=== PATIENT | female | born 2005 | race Caucasian/White ===

== ENCOUNTER → 2024-05-16 | Outpatient (CLI) | payer OTHER, SELFPAY | END | disposition home or self-care (01) | LOC: BWCLAB 14:07 | PROVIDERS: Referring Provider Obstetrics & Gynecology; Visit Provider Obstetrics & Gynecology | DX: O09.90 Supervision of high risk pregnancy, unspecified, unspecified trimester (principal); Z3A.00 Weeks of gestation of pregnancy not specified | CPT/HCPCS: 36415; 86850; 86900; 86901 ==

== ENCOUNTER 2024-05-31 13:14 | Emergency (ER) | payer OTHER, SELFPAY ==
[2024-05-31 13:15] VITALS: BP 139/84; PULSE 103; RESP 16; TEMP 36.4; O2SAT 100; BMI 30.4
--- NOTE | 2024-05-31 14:12 | US_ITS ---
PROCEDURE: 1st trimester OB ultrasound REASON FOR EXAM: Vaginal bleeding COMPARISON: None. FINDINGS Uterus measures 8.4 x 7.6 x 4.9 cm. Single live intrauterine including a morphologically normal gestational sac, yolk sac and pole. Section-rump length measures 1.4 cm. heart rate is 161 beats per minute. Estimated ultrasound age is 8 weeks 2 days. Morphologically normal ovaries with appropriate bilateral blood flow. No significant pelvic free fluid. US/Transvaginal w/Preg US IMPRESSION: Single live intrauterine as above. Reading Location: [facility]
[2024-05-31 14:37] LABS: Hematocrit 41.7 % (37-47); Hemoglobin 14.6 g/dL (12.0-15.0)
--- NOTE | 2024-05-31 14:49 | ED.VIS.FEGU ---
HPI HPI - Female History of Present Illness Chief Complaint: Vag Bld, Preg Detail of Chief Complaint: Patient presents with first trimester vaginal bleeding Informant: patient and spouse/S.O. Pain Pain: Negative for Pelvic Pain, Vulvar Pain or Vaginal Pain Bleeding Issue: Positive for Vaginal bleeding and Passing clots; Negative for Passing tissue Onset: Today Context: Sudden Onset Timing: Continuous Current Severity: Heavy Associated Symptoms Associated Symptoms: Positive for Missed Period; Negative for Dysuria, Frequency, Urgency, Hematuria or Irregular Period Last known menstrual period: Patient is 8 weeks. She has had 2 ultrasounds P: 0 Ab: 0 Narrative Narrative: Patient is a 18-year-old G1, P0 female with a negative blood who is been seen by Dr. Agata Jernigan for vaginal bleeding. Ultrasound approximate 2 weeks ago. She had a follow-up 1 week later revealed the subchorionic hemorrhage had resolved. She presents because she had spontaneous vaginal bleeding. States it was heavy with passage of clots. She denies cramping pelvic pain lightheadedness. She denies pain referred to her shoulder. She denies history of endometriosis or salpingitis. She does have history of polycystic ovarian syndrome. Prior similar symptoms: Yes Recent Illness/Hospitalization: No PFSH PFSH Medical History Obesity, class 1 Female hirsutism Elevated testosterone level in female Abnormal uterine bleeding Anxiety PCOS (polycystic ovarian syndrome) Home Medications ?Medication ?Instructions ?Recorded ?Last Taken ?Type bupropion HCl 150 mg 24 hr tablet, 150 mg PO QAM 05/16/24 Unknown History extended release (Wellbutrin XL) metformin 500 mg tablet,extended 1,000 mg PO QPM 05/16/24 Unknown History release 24 hr choline 250 mg tablet 260 mg PO DAILY 05/25/24 Unknown History multivitamin no.47-iron fum 27 cap PO 05/25/24 Unknown History mg-folate no.1 1 mg-dha 300 mg capsule (PNV-DHA) Allergy/AdvReac Type Severity Reaction Status Date / Time tree nut (tree nuts) Allergy Severe Swelling Verified 05/31/24 13:17 cefdinir AdvReac Rash Verified 05/31/24 13:17 Surgical History [place] teeth extracted Social History adopted: No household members: spouse housing: house number of children: 0 current occupational status: employed current occupation: [employer] current occupational exposures/hazards: No pets and animals: Yes (AVOID LITTERBOX) pets and animals: cat(s) and dog(s) history of recent travel: Yes (- Mar) out of state: Yes out of country: No sexually active: Yes Smoking Status: Never smoker second hand exposure: No alcohol intake: never substance use type: does not use well-balanced diet: daily or most days caffeine: Yes Type: carbonated beverages Number of servings: 1 eating out: 1-3 times/week during the past year weight has: remained stable what type of physical activity do you participate in: none maday/mandaen: [employer] seatbelt use: always do you feel safe at home: Yes additional social history: Leonid- Farming ROS ROS ED Constitutional Constitutional ED: Denies chills, fever(s), subjective or sweats Cardiovascular Cardiovascular: Denies chest pain or palpitations Respiratory/Chest Respiratory/Chest: Denies cough, dyspnea or dyspnea on exertion Gastrointestinal Gastrointestinal: Denies abdominal pain, nausea or vomiting Genitourinary Genitourinary ED: Denies dysuria, hematuria or urinary frequency Musculoskeletal Musculoskeletal: Denies arthralgias Hematologic/Lymphatic Hematologic/Lymphatic: Denies easy bleeding or easy bruising EXAM Physical Exam Const Vital Signs: 05/31/24 13:15 05/31/24 15:15 Temperature 97.6 F L Temperature Source Temporal Pulse Rate 103 H 86 Respiratory Rate 16 18 Blood Pressure 139/84 H Blood Pressure Mean 102 Pulse Ox 100 98 Oxygen Delivery Method Room Air Room Air Vital signs are marked for an elevated blood pressure and heart rate. Positive well nourished and well developed Constitutional Narrative: BM by is 30.5. General Appearance ED: well developed and NAD; Negative for odor of alcohol detected HEENT Reports moist mucous membranes HEENT Narrative: Head is atraumatic normocephalic. Nares patent. Eyes PERRL and EOMs intact bilaterally General Eye ED: Negative for pale conjunctiva or scleral icterus Neck no lymphadenopathy, supple and no JVD Chest Wall inspection of chest normal and palpation of chest normal Resp normal respiratory effort and clear to auscultation bilaterally Cardio regular rate, regular rhythm, S1 normal heart sound, no murmurs and no JVD GI normal to inspection, nondistended, normoactive bowel sounds, soft to palpation, non-distended and no masses; Negative for non-tender GI Narrative: Patient planing some discomfort to deep palpation in the suprapubic area. Auscultation: normoactive bowel sounds Back/Spine no CVA tenderness Extremity normal to inspection and full ROM Neuro oriented x3 and CN's II-XII intact bilaterally Sensorium / Orientation: alert Psych mental status grossly normal Skin no rashes or lesions noted and no wounds MDM MDM MDM Narrative Medical decision making narrative: Since patient had 2 ultrasound with single live intrauterine will obtain ultrasound to see if the is viable. She has known a negative blood. H&H was obtained and compared to prior. The ultrasounds that were performed were done at Dr. Perez Sánchez's office and images are not available for review. Will discuss case with Dr. Cramer who is on-call for the group once the ultrasound has been interpreted by radiologist. Lab Data Labs: Laboratory Results - last 24 hr 05/31/24 14:30 Hgb 14.6 Hct 41.7 Radiography Diagnostic Testing: Clinical Impression(s) from Imaging Studies Obstetrics Ultrasound 05/31/24 14:12 IMPRESSION: Single live intrauterine as above. Reading Location: [facility] Management Discussion w/another healthcare provider: Management Associate (Spoke with Dr. Gissel Cramer. Patient to call for appointment next week. Patient informing that she has an appointment for next .) Discharge Plan Triage Chief Complaint: Vag Bld, Preg ED Provider: Lalita Mccullougho Dx/Rx/DC Orders Clinical Impression: Vaginal bleeding before 22 weeks gestation, Rh negative status during Instructions: Bleeding During Early Prescriptions: No Action PNV-DHA 27 mg iron-1 mg -300 mg capsule PO choline 250 mg tablet 260 mg PO DAILY bupropion HCl [Wellbutrin XL] 150 mg tablet extended release 24 hr 150 mg PO QAM metformin 500 mg tablet extended release 24 hr 1,000 mg PO QPM Primary Care Provider: Care Physician,No Primary Referrals: Agata Jernigan MD [Med Staff - Active Staff] - Keep Tejinder appointment Care Physician,No Primary [Primary Care Provider] - Print Language: Panamanian Disposition Disposition: Home, Self Care
[2024-05-31 15:15] VITALS: PULSE 86; RESP 18; O2SAT 98
[2024-05-31 17:00] VITALS: PULSE 90; RESP 18; O2SAT 99
== END 2024-05-31 17:21 | disposition home or self-care (01) ==
PROVIDERS: Emergency Provider Emergency Medicine; Visit Provider Emergency Medicine
DX: O20.9 Hemorrhage in early pregnancy, unspecified (principal); O26.891 Other specified pregnancy related conditions, first trimester; Z3A.01 Less than 8 weeks gestation of pregnancy
CPT/HCPCS: 76817; 85014; 85018; 99283; A4216

== ENCOUNTER → 2024-06-04 | Outpatient (CLI) | payer OTHER, SELFPAY ==
[2024-06-04 14:34] LABS: hCG Titer Quant., Serum 144748 mIU/mL (<9 non-preg)
== END | disposition home or self-care (01) ==
LOC: BWCLAB 11:49
PROVIDERS: Advanced Practice Midwife; Referring Provider Obstetrics & Gynecology; Visit Provider Obstetrics & Gynecology
DX: O20.9 Hemorrhage in early pregnancy, unspecified (principal); O26.899 Other specified pregnancy related conditions, unspecified trimester; Z67.91 Unspecified blood type, Rh negative; Z3A.00 Weeks of gestation of pregnancy not specified
CPT/HCPCS: 36415; 84702

== ENCOUNTER → 2024-06-07 | Outpatient (CLI) | payer OTHER, SELFPAY ==
[2024-06-11 20:08] LABS: Chlamydia By Nucleic Acid AMP Negative (Negative); Gonococcus By Nucleic Acid AMP Negative (Negative)
== END | disposition home or self-care (01) ==
PROVIDERS: Referring Provider Advanced Practice Midwife; Visit Provider Advanced Practice Midwife
DX: O09.90 Supervision of high risk pregnancy, unspecified, unspecified trimester (principal); Z3A.00 Weeks of gestation of pregnancy not specified
CPT/HCPCS: 87086; 87491; 87591

== ENCOUNTER → 2024-06-14 | Outpatient (CLI) | payer OTHER, SELFPAY ==
[2024-06-14 12:32] LABS: Absolute Neutrophil Count 3.7 X10^3/uL (2.0-7.7); Basophil# 0.03 X10^3/uL; Basophil% 0.5 % (0-1); Eosinophil# 0.08 X10^3/uL; Eosinophils% 1.3 % (0-5); Hematocrit 41.3 % (37-47); Hemoglobin 14.4 g/dL (12.0-15.0); Lymphocyte % 28.6 % (19-41); Mean Corp Hgb Conc 34.9 g/dL (32-36); Mean Corpuscular Hgb 31.4 pg (27.0-32.0); Mean Platelet Vol. 11.9 fl (6.2-12.0); Monocyte# 0.43 X10^3/uL; Monocyte% 7.2 % (0-10); NRBC Flagged by Analyzer 0 % (0-5); Neutrophil % 62.2 % (47-70); Platelet Count 213 K/mm3 (150-450); RBC Distribution Width CV 12.4 % (11.6-14.6); RBC Distribution Width SD 40.5 fl (35.1-43.9); Red Blood Count 4.59 M/mm3 (4.2-5.4)
[2024-06-14 15:50] LABS: HIV Nonreactive (Nonreactive)
[2024-06-14 17:02] LABS: Hepatitis B Surface Antigen Nonreactive (Nonreactive); Hepatitis C Antibody Nonreactive (Nonreactive); Rubella IgG REAC (Nonreactive); Syphilis Antibodies Nonreactive (Nonreactive)
[2024-06-14 19:57] LABS: Hemoglobin A1c 4.8 % (<=5.6)
== END | disposition home or self-care (01) ==
LOC: BWCLAB 10:18
PROVIDERS: Referring Provider Advanced Practice Midwife; Visit Provider Advanced Practice Midwife
DX: O99.210 Obesity complicating pregnancy, unspecified trimester (principal); E66.9 Obesity, unspecified; Z3A.00 Weeks of gestation of pregnancy not specified
CPT/HCPCS: 36415; 83036; 85025; 86703; 86762; 86780; 86803; 86850; 86900; 86901; 87340

== ENCOUNTER → 2024-10-17 | Outpatient (CLI) | payer OTHER, SELFPAY ==
[2024-10-17 16:35] LABS: Hematocrit 37.4 % (37-47); Hemoglobin 13.1 g/dL (12.0-15.0); Immature Granulocytes Count 0.090 X10^3/uL (0.0-0.0); Mean Corp Hgb Conc 35.0 g/dL (32-36); Mean Corpuscular Volume 91.4 fL (81-99); Mean Platelet Vol. 12.9 fl (6.2-12.0); NRBC Flagged by Analyzer 0 % (0-5); Platelet Count 146 K/mm3 (150-450); RBC Distribution Width CV 13.2 % (11.6-14.6); RBC Distribution Width SD 44.0 fl (35.1-43.9); Red Blood Count 4.09 M/mm3 (4.2-5.4); White Blood Count 11.0 K/mm3 (4.4-11.0)
[2024-10-17 17:17] LABS: Glucose Challenge Gest 1H 50g 123 mg/dL (70-140); HIV Nonreactive (Nonreactive); Syphilis Antibodies Nonreactive (Nonreactive)
== END | disposition home or self-care (01) ==
PROVIDERS: Obstetrics & Gynecology; Referring Provider Obstetrics & Gynecology; Visit Provider Obstetrics & Gynecology
DX: O09.92 Supervision of high risk pregnancy, unspecified, second trimester (principal); Z13.1 Encounter for screening for diabetes mellitus; Z3A.00 Weeks of gestation of pregnancy not specified
CPT/HCPCS: 36415; 82950; 85025; 86703; 86780

== ENCOUNTER → 2024-11-02 | Outpatient (CLI) | payer OTHER, SELFPAY ==
[2024-11-02 12:42] LABS: Hematocrit 39.3 % (37-47); Hemoglobin 13.5 g/dL (12.0-15.0); Immature Granulocytes Count 0.140 X10^3/uL (0.0-0.0); Mean Corp Hgb Conc 34.4 g/dL (32-36); Mean Corpuscular Volume 91.6 fL (81-99); Mean Platelet Vol. 12.3 fl (6.2-12.0); NRBC Flagged by Analyzer 0 % (0-5); Platelet Count 164 K/mm3 (150-450); RBC Distribution Width CV 13.0 % (11.6-14.6); RBC Distribution Width SD 43.5 fl (35.1-43.9); Red Blood Count 4.29 M/mm3 (4.2-5.4); White Blood Count 11.0 K/mm3 (4.4-11.0)
[2024-11-02 13:42] LABS: AST(SGOT) 16 U/L (<=31); Alanine Aminotransfer ALT/SGPT 12 U/L (<=34); Albumin, Serum 3.7 g/dL (3.5-5.0); Alkaline Phosphatase 67 U/L (35-104); Anion Gap 13 (5-15); BUN 6 mg/dL (4-19); BUN/Creat Ratio 11.5 RATIO (10-20); Calcium,Total 8.8 mg/dL (7.6-11.0); Carbon Dioxide 18.2 mmol/L (21.0-32.0); Chloride 107 mmol/L (98-108); Globulin 2.8 g/dL (2.2-4.2); Glucose 103 mg/dL (70-99); Potassium 3.7 mmol/L (3.3-5.1)
[2024-11-02 13:56] LABS: Creatinine, Urine (random) 95.40 mg/dL (28.00-217.00); Protein, Urine (Random) 9.1 mg/dL (0.0-12.0); Protein:Creat Ratio 95 mg/g CRE (0-200)
== END | disposition home or self-care (01) ==
LOC: BWCLAB 12:13
PROVIDERS: Referring Provider Advanced Practice Midwife; Visit Provider Advanced Practice Midwife
DX: O26.899 Other specified pregnancy related conditions, unspecified trimester (principal); R51.9 Headache, unspecified; Z3A.00 Weeks of gestation of pregnancy not specified
CPT/HCPCS: 36415; 80053; 82570; 84156; 85025

== ENCOUNTER → 2024-12-12 | Outpatient (CLI) | payer OTHER, MEDICAID, SELFPAY | END | disposition home or self-care (01) | LOC: LABSPEC 10:54 | PROVIDERS: Referring Provider Advanced Practice Midwife; Visit Provider Advanced Practice Midwife | DX: O09.93 Supervision of high risk pregnancy, unspecified, third trimester (principal); Z3A.36 36 weeks gestation of pregnancy | CPT/HCPCS: 87081 ==

== ENCOUNTER 2024-12-20 14:30 | Inpatient (IN) | payer OTHER, MEDICAID, SELFPAY ==
[2024-12-20] VITALS (8 sets, daily range): BP systolic 129–148; BP diastolic 79–96; PULSE 74–111; RESP 16; TEMP 36.2–36.7; O2SAT 97–98; BMI 41.8; BMI 1445.0; BMI 20250918.0
[2024-12-20] MEDS: Lactated Ringers 1,000 ML 50 ML IV (15:00)
[2024-12-20 15:23] LABS: Creatinine, Urine (random) 78.90 mg/dL (28.00-217.00); Protein, Urine (Random) 17.6 mg/dL (0.0-12.0); Protein:Creat Ratio 223 mg/g CRE (0-200)
--- NOTE | 2024-12-20 15:26 | HP.PCM.OB_ITS ---
HPI - General General Date of Admission: 12/20/24 HPI Narrative LIAS MIN, is a 19 y/o @ 3 weeks 1 day who presents to my office today with headache, blurred vision, and bp 150/100 x 2 . She had trace protein in her urine in the office. On L&D her protein:cr was 233 and bp 139/95 but persistent symptoms. The decision was made to admit, collect PIH labs and induce labor for severe features of hypertension. Maternal Data Information JOSH Calculator Estimated Delivery Date Method Current WG Current Estimate 01/09/25 Ultrasound #1 37w 1d Other Estimates 01/02/25 LMP (Certain) 38w 1d 01/10/25 Ultrasound #2 37w 0d PFSH [facility] Medical History (Updated 12/20/24 @ 14:[address] Gissel Sams, DO) Obesity, class 1 Female hirsutism Elevated testosterone level in female Abnormal uterine bleeding Anxiety PCOS (polycystic ovarian syndrome) Home Medications ?Medication ?Instructions ?Recorded ?Last Taken ?Type multivitamin no.47-iron fum 27 1 cap PO DAILY pregnanc y 05/25/24 12/19/24 History mg-folate no.1 1 mg-dha 300 mg capsule (PNV-DHA) Allergy/AdvReac Type Severity Reaction Status Date / Time tree nut (tree nuts) Allergy Severe Swelling Verified 12/20/24 14:50 cefdinir AdvReac Rash Verified 12/20/24 14:50 Surgical History (Updated 12/20/24 @ 14:55 by Hina Pickens) History of surgery [place] teeth extracted Social History adopted: No household members: spouse housing: house number of children: 0 current occupational status: employed current occupation: [employer] current occupational exposures/hazards: No pets and animals: Yes (AVOID LITTERBOX) pets and animals: cat(s) and dog(s) history of recent travel: Yes (Min- Mar) out of state: Yes out of country: No sexually active: Yes Smoking Status: Never smoker second hand exposure: No alcohol intake: never substance use type: does not use well-balanced diet: daily or most days caffeine: Yes Type: carbonated beverages Number of servings: 1 eating out: 1-3 times/week during the past year weight has: remained stable what type of physical activity do you participate in: none maday/jewish: Religion seatbelt use: always do you feel safe at home: Yes additional social history: Leonid- Quinten History 1 Elective abortions Hx Para 0 Spontaneous abortions Hx # Term Pregnancies Ectopic pregnancies Hx # Pregnancies Multiple births # of living children Visit Details Expected Delivery Route/Plan Labor Preferences- CB/BF classes: no labor support person: Leonid labor intervention preferences: [] pain management options preferred: limited cut cord/dad catch: cord : yes PP control planned: discussed discussed possible routes of delivery and associated risks: [] special requests: [] Plans Covid status: [] Flu vaccine: [] Tdap vaccine: given Rhogam: baby Rh neg LARC form signed: yes movement and labor precautions reviewed. Problem list reviewed and updated with the most current plan of care details and appropriate orders placed. Relevant counseling for the gestational age provided. Continue routine care and follow up unless otherwise noted in visit notes/problem list details OB Flowsheet Initial Weight: Not Recorded Date -?-?-?-?-?-?-?-?-?-?-?-?- EGA Weight BP Urine Prot -?-?-?-?-?-?-?-?-?-?-?-?- Glucose FHR FuHt Pres Dilation -?-?-?-?-?-?-?-?-?-?-?-?- Effaced St Visit Note 06/07/24 -?-?-?-?-?-?-?-?-?-?-?-?- 9w 1d 187 lb 126/82 -?-?-?-?-?-?-?-?-?-?-?-?- 175 -?-?-?-?-?-?-?-?-?-?-?-?- KW- CRL cons wit h last US. Accepts NIPT and carrier. Has been having bleeding on and off. none over the last week. reassurance given 07/05/24 -?-?-?-?-?-?-?-?-?-?-?-?- 13w 1d 191 lb 4 oz 123/79 Nega tive -?-?-?-?-?-?-?-?-?-?-?-?- Negative 160 -?-?-?-?-?-?-?-?-?-?-?-?- JV- JV- no complaints. discusse d fragile x carrier status and reassured . 08/02/24 -?-?-?-?-?-?-?-?-?-?-?-?- 17w 1d 198 lb 4 oz 114/74 Nega tive -?-?-?-?-?-?-?-?-?-?-?-?- Negative 150 -?-?-?-?-?-?-?-?-?-?-?-?- SM- no vb lof cr amping 08/30/24 -?-?-?-?-?-?-?-?-?-?-?-?- 21w 1d 209 lb 8 oz 127/81 Nega tive -?-?-?-?-?-?-?-?-?-?-?-?- Negative 145 21 -?-?-?-?-?-?-?-?-?-?-?-?- KW- no vb/crampi ng. no fm yet. US reviewed and normal. mother concerned with a mount of bleeding pt had in early because of -RH. RH not on ronaldo report. request sent for RH if in records. discussed type and screen to check for antibodies. 09/04/24 -?-?-?-?-?-?-?-?-?-?-?-?- 21w 6d 211 lb 8 oz 143/90 113/73 Negative -?-?-?-?-?-?-?-?-?-?-?-?- Negative 154 -?-?-?-?-?-?-?-?-?-?-?-?- MH-work in for b leeding last night after intercourse but has not persisted. Rhogam given. Very anxious and reassured. 09/28/24 -?-?-?-?-?-?-?-?-?-?-?-?- 25w 2d 217 lb 2 oz 113/71 Nega tive -?-?-?-?-?-?-?-?-?-?-?-?- Negative 155 25 -?-?-?-?-?-?-?-?-?-?-?-?- JV- no lof, vagi nal bleeding, or dec fm. no complaints. 10/17/24 -?-?-?-?-?-?-?-?-?-?-?-?- 28w 0d 114/75 -?-?-?-?-?-?-?-?-?-?-?-?- 135 29 -?-?-?-?-?-?-?-?-?-?-?-?- SM- no vb lof go od fm no regular ctx 11/02/24 -?-?-?-?-?-?-?-?-?-?-?-?- 30w 2d 234 lb 7 oz 135/76 Nega tive -?-?-?-?-?-?-?-?-?-?-?-?- Negative 135 31 -?-?-?-?-?-?-?-?-?-?--?-?- KW- no vb/lof/ct x. good fm. 2 episodes of headaches and elevated BP. no headache today. pre e labs today for episodes and swelling. BP has increased from last few appts. 11/27/24 -?-?-?-?-?-?-?-?-?-?-?-?- 33w 6d 242 lb 3 oz 137/73 Nega tive -?-?-?-?-?-?-?-?-?-?-?-?- Negative 130 34 -?-?-?-?-?-?-?-?-?-?-?-?- SM- no vb lof go od fm no regular ctx 12/12/24 -?-?-?-?-?-?-?-?-?-?-?-?- 36w 0d 248 lb 5 oz 131/83 Nega tive -?-?-?-?-?-?-?-?-?-?-?-?- Negative 145 37 Cephalic 1 -?-?-?-?-?-?-?-?-?-?-?-?- 60 -2 KW- no vb/ lof/ctx. good fm. GBS today. no concerns 12/20/24 -?-?-?-?-?-?-?-?-?-?-?-?- 37w 1d 252 lb 9 oz 150/97 151/100 Trace -?-?-?-?-?-?-?-?-?-?-?-?- Negative 146 38 Cephalic 1 .5 -?-?-?-?-?-?-?-?-?-?-?-?- 60 -3 JV- no lof , vaginal bleeding, or dec fm. she is having some blurry vision sending to L&D for IOL now and treatment of pre-eclampsia. ROS Constitutional Constitutional: Denies change in weight, fatigue, fever(s), headache(s), poor appetite or weakness Eyes Eyes: Denies blurry vision, change in vision, seeing flashes or spots in vision ENT HEENT: Denies dizziness, headache(s), loss taste/smell or sore throat Cardiovascular Cardiovascular: Denies chest pain, dizziness, dyspnea, irregular heart rhythm, leg edema, palpitations, rapid heart rate or vomiting Respiratory/Chest Respiratory/Chest: Denies chest tightness, cough, dyspnea or breast pain Gastrointestinal Gastrointestinal: Denies abdominal pain, anorexia, constipation, cramping, diarrhea, hemorrhoids, vomiting or weight changes Genitourinary Genitourinary: Denies dysuria, flank pain, genital lesions, genital pain, urinary frequency or urinary urgency Musculoskeletal Musculoskeletal: Denies back pain, difficulty walking, joint pain, limited range of motion, muscle cramps or numbness Integumentary Integumentary: Denies lesions or unusual bruising Neurologic Neurologic: Denies abnormal movements, abnormal speech, dizziness, numbness, seizure-like activity or syncope Psychiatric Psychiatric: Denies anxiety, behavioral changes, change in appetite, change in libido, cognitive impairment, confusion, depression, difficulty concentrating, hallucinations or suicidal thoughts Endocrine Endocrinology: Denies excessive sweating, polydipsia or polyuria Hematologic/Lymphatic Hematologic/Lymphatic: Denies easy bleeding, easy bruising or lymphadenopathy Allergic/Immunologic Allergic/Immunologic: Denies itchy eyes, lip swelling, seasonal rhinorrhea, rhinitis, throat swelling, tongue swelling, eczemia, wheezing or asthma Vital Signs Vital Signs Vital Signs: 12/20/24 14:56 12/20/24 14:56 12/20/24 15:01 Pulse Rate 111 H 106 H Blood Pressure BP Systolic BP Diastolic Pulse Ox 98 12/20/24 15:01 12/20/24 15:05 12/20/24 15:05 Pulse Rate 102 H Blood Pressure 139/95 H BP Systolic 139 BP Diastolic 95 Pulse Ox 98 Weight Weight: 251 lb 1.704 oz Body Mass Index (BMI) 41.8 Physical Exam Const alert, oriented x3, no apparent distress and healthy appearing General Appearance: cooperative; Negative for anxious HEENT normocephalic Face and Sinus: normal facial exam Eyes EOMs intact bilaterally and no scleral icterus General Eye: normal appearance of both eyes Neck full ROM and supple Lymph Lymphatic: no lymphadenopathy noted Resp normal respiratory effort Effort and Inspection: able to speak in complete sentences Cardio regular rate GI soft to palpation and non-tender Inspection: gravid Palpation: soft; Negative for tender Back/Spine no CVA tenderness Extremity normal to inspection, full ROM and no clubbing, cyanosis or edema General Extremity: Negative for calf tenderness or edema Skin Lesions: no lesions Rashes: no rashes Psych mental status grossly normal Labs Labs Labs: Blood Type A NEGATIVE Antibody Screen NEGATIVE Hct, (37-47) 39.3 % Hgb, (12.0-15.0) 13.5 g/dL Obstetrics Ultrasound Syphilis Total Ab, (Nonreactive) Nonreactive Rubella IgG Antibody, (Nonreactive) REAC Hep Bs Antigen, (Nonreactive) Nonreactive Hepatitis C Antibody, (Nonreactive) Nonreactive Chlamydia DNA (RIKA), (Negative) Negative N.gonorrhoeae DNA (RIKA), (Negative) Negative HIV 1&2 Antibody, (Nonreactive) Nonreactive Glucose 1 Hr 50 gm, (70-140) 123 mg/dL Assessment & Plan (1) Pre-eclampsia: (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: COMMENT: this child not at risk, future generations may be at risk (3) Screening for genetic disease carrier status: COMMENT: intermediate allele size detection for Fragile X (X linked) (4) Obesity affecting : QUALIFIERS: Trimester: second trimester Obesity type affecting : unspecified obesity Qualified Code(s): O99.212 - Obesity complicating , second trimester COMMENT: [id number] BMI 32 (5) Supervision of high-risk : QUALIFIERS: Trimester: third trimester Qualified Code(s): O09.93 - Supervision of high risk , unspecified, third trimester COMMENT: PRR, , JOSH 01/09/25, girl Glenny Leonid, nl anatomy (6) Depression: QUALIFIERS: Depression Type: unspecified Qualified Code(s): F32.A - Depression, unspecified COMMENT: wellbutrin- weaning off; stable no meds (7) Rh negative status during : QUALIFIERS: Trimester: second trimester Qualified Code(s): O26.892 - Other specified related conditions, second trimester; Z67.91 - Unspecified blood type, Rh negative COMMENT: very early bleeding at 6 weeks, if further bleeding would give rhogam. Give 09/04/24 (8) : QUALIFIERS: Weeks of gestation: 37 weeks Qualified Code(s): Z3A.37 - 37 weeks gestation of COMMENT: GBS neg, NIPT low risk
[2024-12-20 15:58] LABS: Alanine Aminotransfer ALT/SGPT 13 U/L (<=34); Estimated Creatinine Clearance 238.41 ml/min (50-250); Syphilis Antibodies Nonreactive (Nonreactive)
[2024-12-20 16:07] LABS: Hematocrit 37.0 % (37-47); Hemoglobin 13.0 g/dL (12.0-15.0); Immature Granulocytes Count 0.050 X10^3/uL (0.0-0.0); Mean Corp Hgb Conc 35.1 g/dL (32-36); Mean Corpuscular Volume 89.6 fL (81-99); Mean Platelet Vol. 12.9 fl (6.2-12.0); NRBC Flagged by Analyzer 0 % (0-5); Platelet Count 142 K/mm3 (150-450); RBC Distribution Width CV 12.9 % (11.6-14.6); RBC Distribution Width SD 41.8 fl (35.1-43.9); Red Blood Count 4.13 M/mm3 (4.2-5.4); White Blood Count 9.7 K/mm3 (4.4-11.0)
[2024-12-20 16:43] LABS: AST(SGOT) 17 U/L (<=31); Uric Acid 4.1 mg/dL (2.6-6.0)
[2024-12-21] VITALS (59 sets, daily range): BP systolic 100–154; BP diastolic 51–97; PULSE 60–132; RESP 16–20; TEMP 35.9–37.2; O2SAT 87–100; BMI 20250919.0; BMI 520.0; BMI 1748.0
[2024-12-21] MEDS: Oxytocin 15 Units/NS 250ml 15 UNITS/250 ML IV.SOLN 2 UNITS IV (01:00)
--- NOTE | 2024-12-21 07:52 | PCM.PN.BLA ---
Progress Note Coping well with contractions current tracing: FHT: 130 Moderate variability reactive no decelerations category I tracing [place]light: 3-5 minute Contractions Membranes:ruptured for clear at 0745 SVE:3.5/70/-1 Pitocin at 10mu A/P: Continue with position changes Titrate pitocin per protocol Epidural per anesthesia GBS neg Anticipate Dr Cramer aware of above assessment and agrees with plan of care Assessment & Plan Assessment/Plan (1) Encounter for induction of labor: (2) Pre-eclampsia: (3) Carrier of fragile X chromosome: (4) Screening for genetic disease carrier status: (5) Obesity affecting : QUALIFIERS: Trimester: second trimester Obesity type affecting : unspecified obesity Qualified Code(s): O99.212 - Obesity complicating , second trimester (6) Supervision of high-risk : QUALIFIERS: Trimester: third trimester Qualified Code(s): O09.93 - Supervision of high risk , unspecified, third trimester (7) Depression: QUALIFIERS: Depression Type: unspecified Qualified Code(s): F32.A - Depression, unspecified (8) Rh negative status during : QUALIFIERS: Trimester: second trimester Qualified Code(s): O26.892 - Other specified related conditions, second trimester; Z67.91 - Unspecified blood type, Rh negative (9) : QUALIFIERS: Weeks of gestation: 37 weeks Qualified Code(s): Z3A.37 - 37 weeks gestation of (10) PCOS (polycystic ovarian syndrome): Multi Select Codes Urinary/Genital Urinary/Genital CPT Codes: No Charge
[2024-12-21] MEDS: Lactated Ringers 1,000 ML 999 ML IV (10:15)
[2024-12-21] MEDS: fentaNYL-bupivacaine (epidural) 100 ML BAG EPIDURAL ×3 (11:15→20:05)
[2024-12-21] MEDS: 0.9% Saline Lock 10 ML Syringe IV ×3 (12:22→17:47)
--- NOTE | 2024-12-21 12:46 | PN_ITS ---
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: (4) Screening for genetic disease carrier status: (5) Obesity affecting : QUALIFIERS: Trimester: second trimester Obesity type affecting : unspecified obesity Qualified Code(s): O99.212 - Obesity complicating , second trimester (6) Supervision of high-risk : QUALIFIERS: Trimester: third trimester Qualified Code(s): O09.93 - Supervision of high risk , unspecified, third trimester (7) Depression: QUALIFIERS: Depression Type: unspecified Qualified Code(s): F32.A - Depression, unspecified (8) Rh negative status during : QUALIFIERS: Trimester: second trimester Qualified Code(s): O26.892 - Other specified related conditions, second trimester; Z67.91 - Unspecified blood type, Rh negative (9) : QUALIFIERS: Weeks of gestation: 37 weeks Qualified Code(s): Z3A.37 - 37 weeks gestation of (10) PCOS (polycystic ovarian syndrome): Multi Select Codes Urinary/Genital Urinary/Genital CPT Codes: No Charge
[2024-12-21] MEDS: LACTATED RINGERS 500 ML 999 ML IV ×2 (14:20→23:25)
[2024-12-21] MEDS: Oxytocin 15 Units/NS 250ml 15 UNITS/250 ML IV.SOLN 7 UNITS IV (14:45)
[2024-12-21] MEDS: Lactated Ringers 1,000 ML 200 ML IV ×2 (15:20→20:05)
--- NOTE | 2024-12-21 23:15 | EX.PCM.OBVAG ---
Assessment & Plan (1) Vaginal delivery: COMMENT: KW IOL pre eclampsia girl Glenny (2) Encounter for induction of labor: (3) Pre-eclampsia: (4) Carrier of fragile X chromosome: COMMENT: this child not at risk, future generations may be at risk (5) Screening for genetic disease carrier status: COMMENT: intermediate allele size detection for Fragile X (X linked) (6) Obesity affecting : QUALIFIERS: Trimester: second trimester Obesity type affecting : unspecified obesity Qualified Code(s): O99.212 - Obesity complicating , second trimester COMMENT: [id number] BMI 32 (7) Supervision of high-risk : QUALIFIERS: Trimester: third trimester Qualified Code(s): O09.93 - Supervision of high risk , unspecified, third trimester COMMENT: PRR, , JOSH 01/09/25, girl Glenny Leonid, anatomy (8) Depression: QUALIFIERS: Depression Type: unspecified Qualified Code(s): F32.A - Depression, unspecified COMMENT: wellbutrin- weaning off; stable no meds (9) Rh negative status during : QUALIFIERS: Trimester: second trimester Qualified Code(s): O26.892 - Other specified related conditions, second trimester; Z67.91 - Unspecified blood type, Rh negative COMMENT: very early bleeding at 6 weeks, if further bleeding would give rhogam. Give 09/04/24 (10) : QUALIFIERS: Weeks of gestation: 37 weeks Qualified Code(s): Z3A.37 - 37 weeks gestation of COMMENT: GBS neg, NIPT low risk (11) PCOS (polycystic ovarian syndrome): COMMENT: was on metformin at conception, stopped at 17 weeks Maternal Data Information JOSH Calculator Estimated Delivery Date Method Current WG Current Estimate 01/09/25 Ultrasound #1 37w 2d Other Estimates 01/02/25 LMP (Certain) 38w 2d 01/10/25 Ultrasound #2 37w 1d Final JOSH: 12/21/24 Final JOSH Source: US >20 weeks Gestational age: 37.2 Vaginal Delivery Maternal Presentation Maternal Presentation: Medically Indicated Induction Maternal Presentation: Presented to unit for induction of labor for pre eclampsia at 37 weeks Type of Induction: Pitocin, Amniotomy and Cytotec Vaginal Delivery Information Procedure Performed: Spontaneous Vaginal Delivery Surgeon/Practitioner: Jana Macario Date of Procedure: 12/21/24 Pre-Procedure Diagnosis: see problem list Post-Procedure Diagnosis: same Type of anesthesia: Epidural Estimated Blood Loss: 400 Time of Delivery: 22:59 Findings Description of procedure: Progressed well to 10cm dilated and made steady progress with effective maternal pushing. Delivered the head in DANA presentation. The head was delivered atraumatically and no nuchal cord was identified. The anterior and posterior shoulders delivered without complication followed by the rest of the infant and the was placed on the maternal abdomen. Delayed cord clamping was employed for approximately 3 minutes. Cord was clamped and cut and gentle traction was applied to the cord and the placenta delivered spontaneously. Immediately following, it was noted to be intact with a 3 vessel cord. Uterine bleeding stable. The perineum and vagina were inspected and noted to have no laceration. EBL was 400cc. Patient and infant tolerated delivery well. Apgars 8/9. Dr Prasad notified of vaginal delivery and orders reviewed. Physician agrees with current plan of care. Presentation: Vertex Amniotic Fluid Description: Clear Placental Delivery Description: Spontaneous Placenta Disposition: [facility] Specimen collected: No Cord Vessel Description: 3 Vessels Cord Entanglement: None A Gender: Female (1 minute): 8 (5 minute): 9 Delayed Cord Clamping: Yes [employer] Estimator advertising coordinator: No Post Vaginal Deli Medications given after delivery: IV Pitocin Episiotomy Description: None Laceration: None Complication Complications: No Multi Select Codes Urinary/Genital Urinary/Genital CPT Codes: 94512 Vaginal Delivery [facility]
--- NOTE | 2024-12-21 23:18 | DCINST_ITS ---
Discharge Instructions DC O2, CPAP, BIPAP needs Home O2 Discharge instructions: No Dressing / Incision Discharge Activity: Return to Normal Activity May resume sexual activity in: 6-8 weeks Dressing / Incision Call your doctor if you observe: Fever of 101 or Higher, Coldness, Increased Pain, Numbness or Tingling, Change in Color, Inability to urinate, Inability to have a bowel movement, Using more than 1 pad per hour, Shortness of breath, Dizziness, Fainting spells, Swelling in the ankles, Chest pain, Increased palpitations (irregular heartbeat), Calf discomfort and Uncontrolled pain Follow Up Care Please Follow Up With: Jana Macario CNM When: Please call the office to schedule your follow up appointment in 6 weeks. If you had high blood pressure please call to schedule an appointment in 2 weeks. Test Results: Test results from this visit will be discussed in further detail at your follow- up appointment, if applicable. Discharge Plan Admission Admit Date/Time: 12/20/24 14:30 Attending Provider: Jana Macario Primary Care Provider: Care Physician,Claribel Primary Discharge Orders/Prescriptions Prescriptions: No Action PNV-DHA 27 mg iron-1 mg -300 mg capsule 1 cap PO DAILY Referrals / Follow Up: Care Physician,No Primary [Primary Care Provider, Medical]
[2024-12-22] VITALS (74 sets, daily range): BP systolic 102–130; BP diastolic 55–72; PULSE 102–137; RESP 16–18; TEMP 36.2–36.8; O2SAT 77–100
[2024-12-22] MEDS: Oxytocin 15 Units/NS 250ml 15 UNITS/250 ML IV.SOLN 83 UNITS IV
--- NOTE | 2024-12-22 00:53 | EKG12_ITS ---
Test Reason : TACHY POST DELIVERY Blood Pressure : */* mmHG Vent. Rate : 118 BPM Atrial Rate : 118 BPM P-R Int : 144 ms QRS Dur : 78 ms QT Int : 312 ms P-R-T Axes : 30 29 24 degrees QTcB Int : 437 ms Sinus tachycardia Otherwise normal ECG No previous ECGs available Confirmed by ASHLI AWAD, MERCEDES ([id number]), copy editor KAROLYN COLMENARES ([id number]) on 12/24/2024 8:33:27 AM Referred By: Gissel Sams Confirmed By: MERCEDES CORNELIUS MD
[2024-12-22 05:58] LABS: Hematocrit 32.0 % (37-47); Hemoglobin 11.3 g/dL (12.0-15.0); Immature Granulocytes Count 0.220 X10^3/uL (0.0-0.0); Mean Corp Hgb Conc 35.3 g/dL (32-36); Mean Corpuscular Volume 90.1 fL (81-99); Mean Platelet Vol. 12.5 fl (6.2-12.0); NRBC Flagged by Analyzer 0 % (0-5); POSITIVE DIFFERENTIAL YES; Platelet Count 138 K/mm3 (150-450); RBC Distribution Width CV 12.9 % (11.6-14.6); RBC Distribution Width SD 41.9 fl (35.1-43.9); Red Blood Count 3.55 M/mm3 (4.2-5.4); White Blood Count 23.5 K/mm3 (4.4-11.0)
[2024-12-22 06:12] LABS: Differential Indicated SCAN CRITERIA MET
[2024-12-22] MEDS: 0.9% Saline Lock 10 ML Syringe IV ×5 (07:05→19:13)
[2024-12-22] MEDS: Ampicillin 2 GM in 0.9% Normal Saline (100mL MB+) 100 ML IV ×3 (07:06→18:37)
[2024-12-22 07:10] LABS: Differential Comment SCANNED
[2024-12-22] MEDS: GENTAMICIN IVPB (08:08)
[2024-12-22] MEDS: WATER IVPB (08:08)
[2024-12-22] MEDS: DEXTROSE 5% IVPB (08:08)
--- NOTE | 2024-12-22 09:27 | PN.OBGYN_ITS ---
Subjective Subjective Patient doing well without complaints. Tolerating PO. Ambulating and voiding without difficulty. Feeding well. Denies chest pain, shortness of breath, calf pain/swelling, fevers, chills, lightheadedness. Objective Data Objective Data Vital Signs: Vital Signs Temp Pulse Resp BP Pulse Ox O2 Del Method 97.1 F L 115 H 17 124/72 H 99 Room Air 12/22/24 04:35 12/22/24 07:47 12/22/24 04:35 12/22/24 07:47 12/22/24 04:24 12/22/24 04:35 Oxygen Delivery Method Room Air Weight: 251 lb 1.704 oz Body Mass Index (BMI) 41.8 Intake & Output: Intake and Output for Last 24 Hours 12/20/24 12/21/24 12/22/24 23:59 23:59 23:59 Intake Total 83.33 / 83.33 3822.56 / 3822.56 910 / 910 Output Total 2 / 2 853 / 853 2132 / 2132 Balance 81.33 / 81.33 2969.56 / 2969.56 -1222 / -1222 Lab / Micro Data Attestation: I reviewed the patient's lab results. 12/22/24 05:48 12/20/24 15:00 Labs: Laboratory Results - last 24 hr 12/22/24 05:48: WBC 23.5 H, RBC 3.55 L, Hgb 11.3 L, Hct 32.0 L, MCV 90.1, MCH 31.8, MCHC 35.3, RDW Std Deviation 41.9, RDW Coeff of Kimberly 12.9, Plt Count 138 L, MPV 12.5 H, Immature Gran % (Auto) 0.900, Neut % (Auto) 85.8 H, Lymph % (Auto) 5.6 L, [place] % (Auto) 7.6, Eos % (Auto) 0.0, Baso % (Auto) 0.1, Absolute Neuts (auto) 20.2 H, Absolute Lymphs (auto) 1.32, Nucleated RBC % 0, Differential Comment SCANNED ROS Constitutional Constitutional: Reports systems reviewed and no addt'l complaints, except as documented; Denies anorexia or headache(s) Cardiovascular Cardiovascular: Reports systems reviewed and no addt'l complaints, except as documented; Denies dizziness, dyspnea, nausea or tachypnea Respiratory/Chest Respiratory/Chest: Reports systems reviewed and no addt'l complaints, except as documented; Denies cough, dyspnea, shortness of breath at rest or tachypnea Gastrointestinal Gastrointestinal: Reports systems reviewed and no addt'l complaints, except as documented; Denies abdominal pain, constipation or nausea Genitourinary Genitourinary: Reports systems reviewed and no addt'l complaints, except as documented; Denies burning urination, difficulty urinating, dysuria, urinary frequency or urinary incontinence Musculoskeletal Musculoskeletal: Reports systems reviewed and no addt'l complaints, except as documented Integumentary Integumentary: Reports systems reviewed and no addt'l complaints, except as documented Neurologic Neurologic: Reports systems reviewed and no addt'l complaints, except as documented; Denies abnormal speech, dizziness or headache(s) Psychiatric Psychiatric: Reports systems reviewed and no addt'l complaints, except as documented Endocrine Endocrinology: Reports systems reviewed and no addt'l complaints, except as documented Hematologic/Lymphatic Hematologic/Lymphatic: Reports systems reviewed and no addt'l complaints, except as documented Physical Exam Const alert, oriented x3 and no apparent distress Neck full ROM Resp normal respiratory effort, normal air movement and no retractions Effort and Inspection: able to speak in complete sentences and symmetric chest movement GI soft to palpation Bladder / Kidney Exam: bladder normal to palpation Uterus Palpation: uterus fundus firm Extremity normal to inspection and full ROM Psych mental status grossly normal, thought process normal and cooperative Assessment & Plan (1) Tachycardia: COMMENT: elevated WBC. EKG, fluid bolus, AMP and Gent ordered (2) Vaginal delivery: COMMENT: KW IOL pre eclampsia girl [place] PLAN: s/p PPD # 1 1. routine post delivery care 2. breast feeding- support given 3. rh positive 4. rubella immune (3) Encounter for induction of labor: (4) Pre-eclampsia: (5) Carrier of fragile X chromosome: COMMENT: this child not at risk, future generations may be at risk (6) Screening for genetic disease carrier status: COMMENT: intermediate allele size detection for Fragile X (X linked) (7) Obesity affecting : QUALIFIERS: Trimester: second trimester Obesity type affecting : unspecified obesity Qualified Code(s): O99.212 - Obesity complicating , second trimester COMMENT: [id number] BMI 32 (8) Supervision of high-risk : QUALIFIERS: Trimester: third trimester Qualified Code(s): O09.93 - Supervision of high risk , unspecified, third trimester COMMENT: PRR, , JOSH 01/09/25, girl Glenny Leonid, anatomy (9) Depression: QUALIFIERS: Depression Type: unspecified Qualified Code(s): F32.A - Depression, unspecified COMMENT: wellbutrin- weaning off; stable no meds (10) Rh negative status during : QUALIFIERS: Trimester: second trimester Qualified Code(s): O 26.892 - Other specified related conditions, second trimester; Z67.91 - Unspecified blood type, Rh negative COMMENT: very early bleeding at 6 weeks, if further bleeding would give rhogam. Give 09/04/24 (11) : QUALIFIERS: Weeks of gestation: 37 weeks Qualified Code(s): Z 3A.37 - 37 weeks gestation of COMMENT: GBS neg, NIPT low risk (12) PCOS (polycystic ovarian syndrome): COMMENT: was on metformin at conception, stopped at 17 weeks Charges/Coding Multi Select Codes Urinary/Genital Urinary/Genital CPT Codes: No Charge
[2024-12-22 12:38] LABS: Hematocrit 30.0 % (37-47); Hemoglobin 10.7 g/dL (12.0-15.0); Immature Granulocytes Count 0.150 X10^3/uL (0.0-0.0); Mean Corp Hgb Conc 35.7 g/dL (32-36); Mean Corpuscular Volume 89.8 fL (81-99); Mean Platelet Vol. 12.8 fl (6.2-12.0); NRBC Flagged by Analyzer 0 % (0-5); Platelet Count 128 K/mm3 (150-450); RBC Distribution Width CV 13.0 % (11.6-14.6); RBC Distribution Width SD 42.3 fl (35.1-43.9); Red Blood Count 3.34 M/mm3 (4.2-5.4); White Blood Count 18.6 K/mm3 (4.4-11.0)
--- NOTE | 2024-12-22 14:07 | CASEMGMT ---
Social Work Assessment Labor and Delivery Unit Patient Address: [address] [place] [address] [address], [place] [id number] Phone number: [phone] Date of Referral: 12/22/2024 Time of Referral: 07:48 Referred By: Jana Macario Date of Intervention: 12/22/24 Time of Intervention: 14:07 Reason for Referral: Mental Health/Depression History obtained from: Mother of baby, (MOB), father of baby (FOB/Leonid, age 20) and medical record review. ? Household composition: MOB, FOB and their daughter, Glenny, born on 12/21/24. ? Patient's parent/guardian status: MOB and FOB have been together for 5 years and have been for 1 year.? MOB denied any previous or current issues of domestic violence and described a positive relationship with the FOB. MOB and FOB both denied having any other children. Medical History: : 1, Para, now 1. MOB received PNC through [place] beginning at 9 weeks and 1 day. Visits were observed to be routine. Apgars: 8 and 9. Weight: 7lbs, 13oz. Veterinary Pharmacologist: Dr. Ted Saucedo. Educational Status: MOB and FOB denied any issues with reading, writing or learning comprehension. MOB attended one year of college and the FOB earned his high school diploma. Financial Status: MOB and FOB reported that their income is sufficient to meet the needs of their family at this time. MOB is going to be a shzl-hv-zerf mom (SAHM) and the FOB currently works ?full-time and then some? in the area of farming. Supplies: MOB and FOB reported they have the supplies they need for baby at this time including but not limited to: Car seat, bassinet, crib, diapers, bottles, breast pump and clothing. Childcare/Caregiver(s): MOB reported that as a SAHM, she will be the primary caregiver and the FOB will also help provide care during the times he is home. Transportation: Both MOB and FOB are licensed drivers and have a reliable vehicle to get baby to and from all medical appointments. MOB and FOB denied any issues/barriers to transportation at this time. Programs/Agencies Involved: Department of [employer]; Medicaid and food stamps. Children Services/Legal Issues: MOB and FOB denied any previous or current Children Services and/or ?legal involvement. Behavioral Health Issues: Denied ? Mental Health History: MOB has a history of depression and anxiety and used to be on medication however stopped 17 weeks into her . MOB described her symptoms as being managed at this time and stated she does not have a plan to get back on her medications unless needed. FOB denied any history of mental health. Fly Winder administered the [place] Depression Scale (EPDS) to the MOB.? MOB?s score was a 6. Fly Winder provided education about the score which the MOB verbalized she understood. Substance Use History:?? MOB and FOB denied any previous or current drug or alcohol abuse. ? Family History:? MOB reported her mother and MOB?s oldest brother both have a history of anxiety and depression. MOB and FOB denied any other history of mental health or drug or alcohol abuse issues on either side of their families. ? Drug Screens: None obtained during this hospital admission either for the MOB or baby. Family/Social Stressors:?? Denied. MOB stated they are ?on cloud nine right now?. Support Systems:? MOB identified her biggest support as the FOB, family as well as her mother. Depression/Shaken Baby/Safe Sleeping: Fly Winder provided verbal and written education on PPD, increased risk factors for PPD, Safe Sleeping and Shaken Baby.? MOB and FOB both verbalized an understanding.??? ASSESSMENT: MOB and FOB provided consent to social work visit. Upon arrival, the MOB was sitting in a chair, eating lunch and the FOB was laying on the couch, holding on his stomach with both hands. At one point, the FOB started to fall asleep and social worker delinquency prevention alerted the MOB and instructed the MOB to go get from the FOB so that doesn?t risk rolling off of the FOB and onto the floor. (MOB had not been able to see due to how her chair was positioned). Fly Winder reviewed safe sleeping again and after the assessment also alerted MOB?s nurse to review safe holding/sleeping procedures with the MOB and FOB which she agreed to do. Fly Winder observed positive interaction between the MOB and FOB as well as with the MOB and FOB towards . Both were observed to be very gentle with and attentive. ??At the end of the assessment, Fly Winder requested to speak with the MOB alone, which she and the FOB were both agreeable to. MOB reported feeling safe in her home and denied any previous or current domestic violence, unmanaged mental health issues either with herself or with the FOB, and also denied any concerns with any drug or alcohol abuse either with herself or with the FOB as well as any unmanaged mental health concerns. Safe Plan of Care for infant related to substance use: N/A PLAN: For MOB and baby to be discharged when medically ready. No other services requested or indicated. Gissel Nam, FILL MANAGER, ELECTRICAL CONTROLS TECHNICIAN
[2024-12-23 02:50] VITALS: PULSE 90; O2SAT 98
[2024-12-23 02:51] VITALS: BP 107/58; PULSE 88
[2024-12-23 02:55] VITALS: BP 107/58; PULSE 89; RESP 16; TEMP 36.4; O2SAT 98
[2024-12-23 08:20] VITALS: BP 119/66; PULSE 89; RESP 16; TEMP 36.8; O2SAT 99
[2024-12-23 08:21] VITALS: BP 119/66; PULSE 89; PULSE 98; O2SAT 99
--- NOTE | 2024-12-23 09:25 | PCM.PN.OB ---
Subjective Subjective Patient doing well without complaints. Tolerating PO. Ambulating and voiding without difficulty. Feeding well. Denies chest pain, shortness of breath, calf pain/swelling, fevers, chills, lightheadedness. Objective Data Objective Data Vital Signs: Vital Signs Temp Pulse Resp BP Pulse Ox O2 Del Method 98.2 F 98 16 119/66 99 Room Air 12/23/24 08:20 12/23/24 08:21 12/23/24 08:20 12/23/24 08:21 12/23/24 08:21 12/23/24 08:20 Oxygen Delivery Method Room Air Weight: 251 lb 1.704 oz Body Mass Index (BMI) 41.8 Intake & Output: Intake and Output for Last 24 Hours 12/21/24 12/22/24 12/23/24 23:59 23:59 23:59 Intake Total 3822.56 / 3822.56 1110 / 1110 Output Total 853 / 853 2732 / 2732 Balance 2969.56 / 2969.56 -1622 / -1622 Lab / Micro Data Attestation: I reviewed the patient's lab results. 12/22/24 12:10 12/20/24 15:00 Labs: Laboratory Results - last 24 hr 12/22/24 12:10: WBC 18.6 H, RBC 3.34 L, Hgb 10.7 L, Hct 30.0 L, MCV 89.8, MCH 32.0, MCHC 35.7, RDW Std Deviation 42.3, RDW Coeff of Kimberly 13.0, Plt Count 128 L, MPV 12.8 H, Immature Gran % (Auto) 0.800, Neut % (Auto) 84.8 H, Lymph % (Auto) 6.7 L, [place] % (Auto) 7.4, Eos % (Auto) 0.1, Baso % (Auto) 0.2, Absolute Neuts (auto) 15.8 H, Absolute Lymphs (auto) 1.24, Nucleated RBC % 0 ROS Constitutional Constitutional: Reports systems reviewed and no addt'l complaints, except as documented; Denies anorexia or headache(s) Cardiovascular Cardiovascular: Reports systems reviewed and no addt'l complaints, except as documented; Denies dizziness, dyspnea, nausea or tachypnea Respiratory/Chest Respiratory/Chest: Reports systems reviewed and no addt'l complaints, except as documented; Denies cough, dyspnea, shortness of breath at rest or tachypnea Gastrointestinal Gastrointestinal: Reports systems reviewed and no addt'l complaints, except as documented; Denies abdominal pain, constipation or nausea Genitourinary Genitourinary: Reports systems reviewed and no addt'l complaints, except as documented; Denies burning urination, difficulty urinating, dysuria, urinary frequency or urinary incontinence Musculoskeletal Musculoskeletal: Reports systems reviewed and no addt'l complaints, except as documented Integumentary Integumentary: Reports systems reviewed and no addt'l complaints, except as documented Neurologic Neurologic: Reports systems reviewed and no addt'l complaints, except as documented; Denies abnormal speech, dizziness or headache(s) Psychiatric Psychiatric: Reports systems reviewed and no addt'l complaints, except as documented Endocrine Endocrinology: Reports systems reviewed and no addt'l complaints, except as documented Hematologic/Lymphatic Hematologic/Lymphatic: Reports systems reviewed and no addt'l complaints, except as documented Physical Exam Const alert, oriented x3 and no apparent distress Neck full ROM Resp normal respiratory effort, normal air movement and no retractions Effort and Inspection: able to speak in complete sentences and symmetric chest movement GI soft to palpation Bladder / Kidney Exam: bladder normal to palpation Uterus Palpation: uterus fundus firm Extremity normal to inspection and full ROM Psych mental status grossly normal, thought process normal and cooperative Assessment & Plan (1) Tachycardia: COMMENT: elevated WBC. EKG, fluid bolus, AMP and Gent ordered (2) Vaginal delivery: COMMENT: KW IOL pre eclampsia girl [place] PLAN: s/p PPD # 2 1. routine post delivery care 2. breast feeding- support given 3. rh positive 4. rubella immune 5. Discharge home (3) Encounter for induction of labor: (4) Pre-eclampsia: PLAN: plan to take daily BPS for next week and call office with numbers on tuesday. will call in if higher than 140/90 or higher. (5) Carrier of fragile X chromosome: COMMENT: this child not at risk, future generations may be at risk (6) Screening for genetic disease carrier status: COMMENT: intermediate allele size detection for Fragile X (X linked) (7) Obesity affecting : QUALIFIERS: Trimester: second trimester Obesity type affecting : unspecified obesity Qualified Code(s): O99.212 - Obesity complicating , second trimester COMMENT: [id number] BMI 32 (8) Supervision of high-risk : QUALIFIERS: Trimester: third trimester Qualified Code(s): O09.93 - Supervision of high risk , unspecified, third trimester COMMENT: PRR, , JOSH 01/09/25, girl Glenny Leonid, nl anatomy (9) Depression: QUALIFIERS: Depression Type: unspecified Qualified Code(s): F32.A - Depression, unspecified COMMENT: wellbutrin- weaning off; stable no meds (10) Rh negative status during : QUALIFIERS: Trimester: second trimester Qualified Code(s): O26.892 - Other specified related conditions, second trimester; Z67.91 - Unspecified blood type, Rh negative COMMENT: very early bleeding at 6 weeks, if further bleeding would give rhogam. Give 09/04/24 (11) : QUALIFIERS: Weeks of gestation: 37 weeks Qualified Code(s): Z3A.37 - 37 weeks gestation of COMMENT: GBS neg, NIPT low risk (12) PCOS (polycystic ovarian syndrome): COMMENT: was on metformin at conception, stopped at 17 weeks Charges/Coding Multi Select Codes Urinary/Genital Urinary/Genital CPT Codes: No Charge
--- NOTE | 2024-12-24 10:00 | DS.PCM_ITS ---
Providers Date of Admission: 12/20/24 Date of Discharge: 12/23/24 Primary Care Physician: Claribel Primary Care Phys Reason For Visit: LABOR AND DELIVERY Diagnosis Discharge Diagnosis (1) Tachycardia: Status: Acute Code(s): R00.0 - Tachycardia, unspecified (2) Vaginal delivery: Status: Acute Code(s): O80 - Encounter for full-term uncomplicated delivery Plan: s/p PPD # 2 1. routine post delivery care 2. breast feeding- support given 3. rh positive 4. rubella immune 5. Discharge home (3) Encounter for induction of labor: Status: Acute Code(s): Z34.90 - Encounter for supervision of normal , unspecified, unspecified trimester (4) Pre-eclampsia: Status: Acute Code(s): O14.90 - Unspecified pre-eclampsia, unspecified trimester Plan: plan to take daily BPS for next week and call office with numbers on tuesday. will call in if higher than 140/90 or higher. 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 Code(s): Z14.8 - Genetic carrier of other disease (6) Screening for genetic disease carrier status: Status: Acute Code(s): Z13.71 - Encounter for nonprocreative screening for genetic disease carrier status (7) Obesity affecting : Status: Acute Code(s): O99.210 - Obesity complicating , unspecified trimester Qualifiers: Trimester: second trimester Obesity type affecting : u nspecified obesity Qualified Code(s): O99.212 - Obesity complicating , second trimester (8) Supervision of high-risk : Status: Acute Code(s): O09.90 - Supervision of high risk , unspecified, unspecified trimester Qualifiers: Trimester: third trimester Qualified Code(s): O09.93 - Supervision of high risk , unspecified, third trimester (9) Depression: Status: Acute Code(s): F32.A - Depression, unspecified Qualifiers: Depression Type: unspecified Qualified Code(s): F32.A - Depression, unspecified (10) Rh negative status during : Status: Acute Code(s): O26.899 - Other specified related conditions, unspecified trimester; Z67.91 - Unspecified blood type, Rh negative Qualifiers: Trimester: second trimester Qualified Code(s): O26.892 - Other specified related conditions, second trimester; Z67.91 - Unspecified blood type, Rh negative (11) : Status: Acute Code(s): Z34.90 - Encounter for supervision of normal , unspecified, unspecified trimester Qualifiers: Weeks of gestation: 37 weeks Qualified Code(s): Z3A.37 - 37 weeks gestation of (12) PCOS (polycystic ovarian syndrome): Status: Acute Code(s): E28.2 - Polycystic ovarian syndrome Medications at Discharge Home Medications multivitamin no.47-iron fum 27 mg-folate no.1 1 mg-dha 300 mg capsule (PNV-DHA) 1 cap PO DAILY 05/25/24 Hospital Course Operations None Procedures None Summary of Care Provided Minutes Spent on Discharge: 30 Physical Exam Const alert, oriented x3 and no apparent distress Neck full ROM Resp normal respiratory effort, normal air movement and no retractions Effort and Inspection: able to speak in complete sentences and symmetric chest movement GI soft to palpation Bladder / Kidney Exam: bladder normal to palpation Uterus Palpation: uterus fundus Extremity normal to inspection and full ROM Psych mental status grossly normal, thought process normal and cooperative Weight / BMI Weight Weight: 251 lb 1.704 oz Body Mass Index (BMI) 41.8 ABG / Lab / Microbiology Data 12/22/24 12:10 12/20/24 15:00 D/C Instructions May shower in (days): 0 May resume sexual activity in: 6-8 weeks Weight Bearing Status: Full weight bearing Call your doctor if your incision/area has: Continuous Slow Oozing, Sudden Increased Bleeding, Increased Pain/ Swelling, Increased Redness and Foul Smelling Discharge Call your doctor if you observe: Fever of 101 or Higher, Coldness, Increased Pain, Numbness or Tingling, Change in Color, Inability to urinate, Inability to have a bowel movement, Using more than 1 pad per hour, Shortness of breath, Dizziness, Fainting spells, Swelling in the ankles, Chest pain, Increased palpitations (irregular heartbeat), Calf discomfort and Uncontrolled pain Suture Line Care: Avoid Pulling/Pushing and Avoid Pinching/Bending Cleanse incision/area with: Soap & Water and Keep Dressing Clean & Dry DC O2, CPAP, BIPAP Needs Home O2 Discharge instructions: No Please Follow Up With: Jana Macario CNM When: Please call the office to schedule your follow up appointment in 6 weeks. If you had high blood pressure please call to schedule an appointment in 2 weeks. Meaningful Use Info Meaningful Use Meaningful Use Diagnoses (Choose all that apply): None applicable Discharge Plan Admission Admit Date/Time: 12/20/24 14:30 Attending Provider: Jana Macario Primary Care Provider: Care Physician,Claribel Primary Discharge Orders/Prescriptions Prescriptions: No Action PNV-DHA 27 mg iron-1 mg -300 mg capsule 1 cap PO DAILY Referrals / Follow Up: Care Physician,No Primary [Primary Care Provider, Medical] Disposition Disposition (needs filled in before D/C Order can be placed): Home, Self Care Charges/Coding Multi Select Codes Urinary/Genital Urinary/Genital CPT Codes: No Charge
== END 2024-12-23 11:30 | disposition home or self-care (01) | DRG 807 ==
PROVIDERS: Admitting Provider Obstetrics & Gynecology; Referring Provider Obstetrics & Gynecology; Visit Provider Advanced Practice Midwife
DX: O14.14 Severe pre-eclampsia complicating childbirth (principal); Z37.0 Single live birth; O99.344 Other mental disorders complicating childbirth; E28.2 Polycystic ovarian syndrome; F32.A Depression, unspecified; O99.214 Obesity complicating childbirth; F41.9 Anxiety disorder, unspecified; O99.284 Endocrine, nutritional and metabolic diseases complicating childbirth; O26.893 Other specified pregnancy related conditions, third trimester; R00.0 Tachycardia, unspecified; Z67.91 Unspecified blood type, Rh negative; Z3A.37 37 weeks gestation of pregnancy; O99.893 Other specified diseases and conditions complicating puerperium; Z14.8 Genetic carrier of other disease
CPT/HCPCS: 59025; 59050; 82565; 82570; 84156; 84450; 84460; 84550; 85025; 86780; 86850; 86900; 86901; 93005; 99221; A4216; G0378; J2405

== ENCOUNTER → 2025-02-01 | Outpatient (CLI) | payer OTHER, MEDICAID, SELFPAY | END | disposition home or self-care (01) | LOC: BWCLAB 11:58 → LABSPEC 12:00 | PROVIDERS: Visit Provider Advanced Practice Midwife | DX: Z12.4 Encounter for screening for malignant neoplasm of cervix (principal) | CPT/HCPCS: 88175; G0145 ==